=== PATIENT | female | born 2005 ===

== ENCOUNTER 2023-10-24 20:26 | Inpatient (IN) | payer SELFPAY ==
[~2023-10-24] VITALS: Ht 154.9 cm; Wt 97.7 kg
[~2023-10-24 20:26] MED LIST: CEPHALEXIN500 M1 PO; PHENERGAN 25 TA25 MG PO; PRENATAL TABLET PO
--- NOTE | 2023-10-24 20:40 | NUR ---
2039- PT PRESENTS TO UNIT WITH COMPLAINTS OF CTX, AMBULATORY TO ROOM LR4, CHANGED INTO GOWN. 2044- EFM X2 APPLIED. PATIENT COMPLAINS OF CONTRACTIONS OVER THE LAST 4 DAYS, WORSENED IN THE LAST 24HR. DENIES LOF BUT REPORTS SMALL AMOUNT OF PINK SPOTTING, STATES NORMAL MOVEMENT. PLAN OF CARE FOR LABOR CHECK, QUESTIONS ANSWERED, CONSENTS FOR VAGINAL EXAMS. 2052- SVE BY PAUL CÁRDENAS, -/-3, NO POOLING OF FLUID OR VAGINAL BLEEDING NOTED WITH EXAM. 2099- NURSING ADMISSION AND ASSESSMENT COMPLETED. 2150- DUE TO ELEVATED BP DR. ELKINS CALLED, REFER TO PHYSCIAN NOTIFICATION. 2204- LAB TO UNIT FOR BLOOD DRAW 2209- PT UP TO THE BATHROOM, URINE SPECIMEN OBTAINED AND SENT DOWN TO LAB
[2023-10-24 21:15] VITALS: BP 167/74; PULSE 87; TEMP 97.9
[2023-10-24] MEDS ORDERED: LR 1,000 ML IV PRN (21:15)
[2023-10-24] MEDS ORDERED: QUALITY CHOICE1 TA7 (21:23)
[2023-10-24 21:45] VITALS: BP 139/83; PULSE 82
[2023-10-24 22:14] LABS: BASO % 0.3 % (0.0-2.0); EOS # 0.2 K/mm3 (0.0-0.7); GRAN # 4.3 K/mm3 (1.4-6.5); GRAN % 56.5 % (42.2-75.2); HEMOGLOBIN 11.3 g/dl (12.0-15.0); LYMPH # 2.6 K/mm3 (1.2-3.4); MEAN CELL VOLUME 84 fl (80.0-95.0); MEAN CORPUSCULAR HEMOGLOBIN 29 pg (26-32); MEAN CORPUSCULAR HGB CONC 34 g/dl (33.0-37.0); MEAN PLATELET VOLUME 11.6 fl (7.4-10.4); MONO # 0.5 K/mm3 (0.1-0.6); MONO % 6.1 % (1.7-9.3); PLATELET COUNT 226 K/mm3 (130-400); RED BLOOD COUNT 3.94 M/mm3 (4.10-5.30); REDCELL DISTRIBUTION WIDTH-CV 14.6 % (11.5-14.5)
[2023-10-24 22:15] VITALS: BP 149/89; PULSE 83
[2023-10-24 22:15] LABS: HEMATOCRIT 33.2 % (35.0-45.0)
[2023-10-24 22:20] LABS: COLLECTION METHOD CLEAN CATCH
[2023-10-24 22:24] LABS: URINE APPEARANCE TURBID (CLEAR/HAZY); URINE BLOOD NEGATIVE (NEGATIVE); URINE COLOR YELLOW (YELLOW); URINE GLUCOSE NEGATIVE (NEGATIVE); URINE KETONE NEGATIVE (NEGATIVE); URINE NITRATE NEGATIVE (NEGATIVE); URINE PROTEIN(semi-quant) 2+ (NEGATIVE); URINE UROBILINOGEN 0.2 E.U/dL (0.2-1.0)
[2023-10-24 22:33] LABS: ALBUMIN 2.4 g/dL (3.5-5.0); BILIRUBIN,TOTAL 0.2 mg/dL (0.2-1.2); CALCIUM 8.8 mg/dL (8.4-10.2); CREATININE, serum 0.71 mg/dL (0.57-1.11); POTASSIUM 4.2 mEq/L (3.5-4.5)
[2023-10-24 22:45] VITALS: BP 150/87; PULSE 78
--- NOTE | 2023-10-24 22:45 | NUR ---
2245-MULTIPLE VAIRABLES AND LATE DECEL X1 NOTED ON STRIP. 2257- DR. ELKINS NOTIFIED OF LAB RESULTS AND TACHYCARDIA. ORDERS RECIEVED. SEE PHYSICAN NOTIFICATION. 2315- PT UPDATED ON PLAN OF CARE, QUESTIONS ANSWERED. 2335- IV STARTED CHARTED. BLOOD DRAWN FOR LAB. LR BOLUS INFUSING. 0000- PLAN OF CARE DISCUSSED AND CONSENTS SIGNED WITH HOME CARE AIDE ASSISTANCE.
[2023-10-24 22:56] LABS: URINE RBC 0-2 /hpf (0-2)
[2023-10-24 22:57] LABS: MUCOUS PRESENT (NOT PRESENT); URINE BACTERIA MODERATE /hpf (NONE SEEN)
[2023-10-24 23:15] VITALS: BP 145/81; PULSE 77
[2023-10-24] MEDS ORDERED: LR & Oxytocin 500 ML IV SCH (23:30)
[2023-10-24] MEDS ORDERED: LR 1,000 ML IV SCH (23:30)
[2023-10-24 23:45] VITALS: BP 164/92; PULSE 81; TEMP 98.4
[2023-10-25] VITALS (20 sets, daily range): BP systolic 108–161; BP diastolic 62–95; PULSE 72–94; TEMP 98–98.2
--- NOTE | 2023-10-25 02:00 | NUR ---
0202- PITOCIN STARTED AT 2MUNITS/MIN ORDERED. 0230- PITOCIN INFUSION INCREASED TO 4MUNITS/MIN PER PROTOCOL. 0255- DR. ELKINS UPDATED ON PT STATUS, SEE PHYSICIAN NOTIFICATION 0307- PITOCIN INFUSION INCREASED TO 6MUNITS/MINUTE. PT STATES SHE CAN FEEL CTX GETTING STRONGER.
--- NOTE | 2023-10-25 04:30 | NUR ---
0405- PT STATES URGE TO PUSH, SVE OF /-3. THIS NURSE ENCOURAGED PT TO NOT PUSH AT THIS TIME. 0407- THIS NURSE REMAINS IN ROOM. PT STATES HER WATER BROKE, CLEAR FLUID VISUALIZED AND AMNIOSWAB POSITIVE. PT STATES URGE TO PUSH, BEGINS BEARING DOWN. HEAD VISIBLE. DR. ELKINS ON THE UNIT, NOTIFIED OF IMPENDING DELIVERY BUT CURRENTLY IN ANOTHER DELIVERY. 0409- NURSE ATTENDED SPONTANEOUS VAGINAL DELIVERY OF VIABLE BABY BOY. SPONTANEOUS CRY NOTED. CORD CLAMPED BY THIS NURSE AND CUT BY FOB. DR. ELKINS IN ROOM IMMEDIATLEY FOLLOWING CUTTING OF THE CORD. BABY TO MOTHER'S ABDOMEN. BABY CARES ASSUMED BY Matthew NARAYANAN RN AND DR. ELKINS TO DELIVER PLACENTA. 0414- SPONTANEOUS DELIVERY OF INTACT PLACENTA. PITOCIN STARTED AT 333ML/HR PER PROTOCOL. DR ELKINS BEGINS REPAIR OF 1ST DEGREE LACERATION AND PERIURETHRAL LACERATION. RED MARILYNN INSERTED DURING PERIURETHRAL REPAIR. 0430- POSPARTUM RECOVERY STARTED.
[2023-10-25] MEDS ORDERED: Loratadine 10 MG TAB PO PRN (05:00)
[2023-10-25] MEDS ORDERED: Magnes Hydrox (MOM) 80 MG/ML 30 ML CUP PO PRN (05:00)
[2023-10-25] MEDS ORDERED: Naloxone 0.4 MG/ML VIAL IV PRN (06:45)
[2023-10-25] MEDS ORDERED: Phenylephrine/Mineral Oil/Petrolatum 57 GM TUBE RC PRN (06:45)
[2023-10-25] MEDS ORDERED: Measles/Mumps/Rubella Virus Vaccine Live w Diluent 0.5 ML VIAL SQ SCH (06:45)
[2023-10-25] MEDS ORDERED: Mag/Al Hydrox/Simeth Susp 30 ML CUP PO PRN (06:45)
[2023-10-25] MEDS ORDERED: Ibuprofen 600 MG TAB PO SCH (06:45)
[2023-10-25] MEDS ORDERED: Acetaminophen 500 MG TAB PO SCH (06:45)
[2023-10-25] MEDS ORDERED: oxyCODONE 5 MG TAB PO PRN (06:45)
[2023-10-25] MEDS ORDERED: Witch Hazel 50% Pads Bulk TUB TP PRN (06:45)
[2023-10-25] MEDS ORDERED: Sennosides/Docusate 8.6-50 MG TAB PO SCH (08:00)
[2023-10-25] MEDS ORDERED: Prenatal Vitamins/Iron/FA TAB PO SCH (09:00)
[2023-10-25] MEDS ORDERED: traZODone 50 MG TAB PO PRN (21:00)
[2023-10-26 08:00] VITALS: BP 126/86; PULSE 95; TEMP 98.1
[2023-10-26] MEDS ORDERED: MOTRIN 600600 MG/TAB PO (11:45)
== END 2023-10-26 12:00 | disposition home or self-care (01) | DRG 807 ==
LOC: LDRO 20:26 → OB 22:57 → LDR 22:57 → OB 10-25 08:30
PROVIDERS: Obstetrics & Gynecology; ADMIT Obstetrics & Gynecology
PROC: 10E0XZZ Delivery of Products of Conception, External Approach (ICD-10-PCS; principal; 2023-10-25)
PROC: 0UQMXZZ Repair Vulva, External Approach (ICD-10-PCS; 2023-10-25)
PROC: 3E033VJ Introduction of Other Hormone into Peripheral Vein, Percutaneous Approach (ICD-10-PCS; 2023-10-25)
PROC: 0HQ9XZZ Repair Perineum Skin, External Approach (ICD-10-PCS; 2023-10-25)
DX: O48.0 Post-term pregnancy (principal); Z37.0 Single live birth; O11.4 Pre-existing hypertension with pre-eclampsia, complicating childbirth; Z3A.40 40 weeks gestation of pregnancy; O62.3 Precipitate labor; O99.344 Other mental disorders complicating childbirth; F32.A Depression, unspecified; O70.0 First degree perineal laceration during delivery
CPT/HCPCS: J2590; J7120